=== PATIENT | male | born 1970 | race Caucasian/White ===

== ENCOUNTER 2021-10-13 12:28 | Emergency (ER) | payer BC ==
[2021-10-13] MEDS ORDERED: Sodium Chloride 0.9% 10 ML Syringe FLUSH PRN (12:40)
[2021-10-13] MEDS ORDERED: Alum Hydrox/Mag Hydrox/Simeth 30 ML, Lidocaine 2% 15 ML PO ONE ×2 (13:58)
== END 2021-10-13 15:06 | disposition home or self-care (01) ==
LOC: JD.ED 12:28
DX: R07.89 Other chest pain (principal)
CPT/HCPCS: 36415; 71045; 80053; 83735; 83880; 84484; 85025; 85379; 85652; 86140; 93005; 99285; A9270; 93010; J3490